=== PATIENT | female | born 1965 | race Hispanic/Latino ===

== ENCOUNTER → 2024-10-19 | Outpatient (CLI) | payer BC ==
--- NOTE | 2024-10-19 14:33 | HMCIMG ---
US THYROID/NECK REASON: Nontoxic goiter, unspecified. COMPARISON: None TECHNIQUE: Routine thyroid sonogram was performed. FINDINGS: Right lobe is 3 x 1 x 1 cm, left 2.5 x 0.9 x 1.1 cm. There is homogeneous appearing parenchyma. There are no focal cysts or masses. Tissues appear normal as well. IMPRESSION: 1. Normal thyroid sonogram.
== END | disposition home or self-care (01) ==
LOC: RAH 12:56
PROVIDERS: ATTEND Internal Medicine
DX: E04.9 Nontoxic goiter, unspecified (principal)
CPT/HCPCS: 76536

== ENCOUNTER → 2025-03-06 | Outpatient (CLI) | payer BC ==
--- NOTE | 2025-03-06 17:46 | HMCIMG ---
US ABDOMINAL RUQ\[id number]\LTD HISTORY: No additional history given. COMPARISON: None TECHNIQUE: Right upper quadrant abdominal ultrasound study was performed. FINDINGS: Liver measures 15.4 cm. There is left hepatic cyst measuring 4 x 3 mm. The visualized portion of the pancreas is within normal limits. Liver is echogenic consistent with liver parenchymal disease. No gallstone is seen. Common duct measures 5 mm. No evidence of gallbladder wall thickening is seen. Right kidney measures 9.3 x 3.5 x 4.5 cm. No hydronephrosis is seen of the right kidney. IMPRESSION: 1. No gallstones or ductal dilatation is seen. 2. No hydronephrosis is seen.
== END | disposition home or self-care (01) ==
LOC: RAH 08:22
PROVIDERS: ATTEND Student in an Organized Health Care Education/Training Program
DX: K76.89 Other specified diseases of liver (principal); R74.01 Elevation of levels of liver transaminase levels
CPT/HCPCS: 76705